=== PATIENT | male | born 1960 | race African-American/Black ===

== ENCOUNTER 2016-10-16 15:37 | Emergency (ER) | payer MEDICAID, OTHER ==
[~2016-10-16] VITALS: Ht 180.3 cm; Wt 77.3 kg
[2016-10-16 15:40] VITALS: Ht 180.3 cm; Wt 77.3 kg
--- NOTE | 2016-10-16 15:43 | ERA ---
ER Documentation Chief Complaint Date/Time DATE: 10/16/16 TIME: 15:43 Chief Complaint CAME IN VIA EMS DUE TO DIZZINESS FROM DONATING PLASMA HPI The patient is a 56-year-old male, presenting to the ER because he felt dizzy after donating plasma. He felt diarrhea, hungry. The dizziness and the palpitations resolved shortly after a few minutes by themselves w/o any treatment. He has similar symptoms previously, denies headache, neck pain, chest pain, dyspnea, abdominal pain, vomiting, dysuria, diarrhea. He smokes and drinks and smoked marijuana Past medical history: Anxiety, hypertension Past surgical history: Cholecystectomy, varicocele ROS All systems reviewed and are negative except as per history of present illness. Physical Exam Vitals Vital Signs Date Time Temp Pulse Resp B/P Pulse Ox O2 Delivery O2 Flow Rate FiO2 10/16/16 18:41 83 20 120/101 100 Room Air 10/16/16 17:47 66 20 139/95 100 Room Air 10/16/16 16:22 97.9 70 20 137/86 100 10/16/16 15:40 98.8 78 18 142/82 98 Physical Exam Const: No acute distress. Head: Atraumatic. Eyes: Normal Conjunctiva. ENT: Normal External Ears, Nose and Mouth. Neck: Full range of motion. No meningismus. Resp: Clear to auscultation bilaterally. Cardio: Regular rate and rhythm. Abd: Soft, non distended, normal bowel sounds, non tender. Skin: No petechiae or rashes. Back: No midline or flank tenderness. Ext: No cyanosis, or edema. Neur: Awake and alert. No focal deficit Psych: Normal Mood and Affect. Result Diagram: 10/16/16 1610 10/16/16 1610 Results 24 hrs Laboratory Tests Test 10/16/16 16:10 White Blood Count 8.310^3/ul Red Blood Count 4.6810^6/ul Hemoglobin 14.9g/dl Hematocrit 43.4% Mean Corpuscular Volume 92.7fl Mean Corpuscular Hemoglobin 31.8pg Mean Corpuscular Hemoglobin Concent 34.3g/dl Red Cell Distribution Width 14.7% Platelet Count 22124^3/UL Mean Platelet Volume 9.8fl Neutrophils % 64.4% Lymphocytes % 24.9% Monocytes % 6.3% Eosinophils % 3.5% Basophils % 0.5% Nucleated Red Blood Cells % 0.0/100WBC Neutrophils # (Manual) 5.410^3/ul Lymphocytes # 2.110^3/ul Monocytes # 0.510^3/ul Eosinophils # 0.310^3/ul Basophils # 0.010^3/ul Nucleated Red Blood Cells # 0.010^3/ul Sodium Level 136mmol/L Potassium Level 3.9mmol/L Chloride Level 101mmol/L Carbon Dioxide Level 30mmol/L Anion Gap 9 Blood Urea Nitrogen 20mg/dl Creatinine 1.18mg/dl Glucose Level 88mg/dl Calcium Level 8.6mg/dl Procedures/MDM EKG: Read by emergency physician Rate/Rhythm: Normal Sinus Rhythm 70 beats/min QRS, ST, T-waves: No ST elevation, no T inversion, sinus arrhythmia, LVH, early repolarization Impression: Abnormal EKG MEDICAL MAKING DECISION: The patient is a 56-year-old male, presenting with acute dizziness, most likely vasovagal. He remains well emergency department denies any symptoms The differential diagnoses considered include but are not limited to central causes such as cerebellar infarct, cerebellar hemorrhage, cerebellar tumor, acoustic neuroma, peripheral causes such as benign positional vertigo, labyrinthitis, medication, Meniere's disease. Departure Diagnosis: Primary Impression: Dizziness Condition: Good Comments I discussed the findings with the patient. I advised the patient to follow-up with the primary physician in about 1-2 days, sooner if needed and return if any concern. ANNIE FERNANDEZ MD Oct 16, 2016 15:43
[2016-10-16 16:22] VITALS: TEMP 97.9
[2016-10-16 16:32] LABS: BASOPHILS % 0.5 % (0.0-2.0); EOSINOPHILS # 0.3 10^3/ul (0.0-0.5); EOSINOPHILS % 3.5 % (0.0-7.0); HEMATOCRIT 43.4 % (42.0-52.0); HEMOGLOBIN 14.9 g/dl (14.0-18.0); LYMPHOCYTES # 2.1 10^3/ul (0.8-2.9); LYMPHOCYTES % 24.9 % (15.0-51.0); MEAN CORPUSCULAR HEMOGLOBIN 31.8 pg (29.0-33.0); MEAN CORPUSCULAR HGB CONC 34.3 g/dl (32.0-37.0); MEAN CORPUSCULAR VOLUME 92.7 fl (82.0-101.0); MEAN PLATELET VOLUME 9.8 fl (7.4-10.4); MONOCYTE # 0.5 10^3/ul (0.3-0.9); MONOCYTES % 6.3 % (0.0-11.0); NEUTROPHILS % 64.4 % (39.0-77.0); PLATELET COUNT 272 10^3/UL (140-415); RED BLOOD COUNT 4.68 10^6/ul (4.70-6.10); RED CELL DISTRIBUTION WIDTH 14.7 % (11.5-14.5); WHITE BLOOD COUNT 8.3 10^3/ul (4.8-10.8)
[2016-10-16 16:50] LABS: CALCIUM 8.6 mg/dl (8.4-10.2); CREATININE 1.18 mg/dl (0.61-1.24); POTASSIUM 3.9 mmol/L (3.5-5.1)
[2016-10-16 18:41] VITALS: BP 120/101; PULSE 83; RESP 20
== END 2016-10-16 18:41 | disposition home or self-care (01) ==
LOC: E/R 15:37
DX: R42 Dizziness and giddiness (principal)
CPT/HCPCS: 36415; 80048; 85025; 93005; Z7502; 99284